=== PATIENT | male | born 1955 | race Hispanic/Latino ===

== ENCOUNTER 2023-03-24 12:06 | Outpatient (CLI) | payer MEDICARE | END 2023-03-24 12:07 | disposition home or self-care (01) | LOC: LABBT 12:06 | PROVIDERS: ATTEND Thoracic Surgery (Cardiothoracic Vascular Surgery) | DX: Z01.810 Encounter for preprocedural cardiovascular examination (principal); I25.118 Atherosclerotic heart disease of native coronary artery with other forms of angina pectoris | CPT/HCPCS: 71046; 93005; 93010 ==

== ENCOUNTER 2023-03-24 12:30 | Inpatient (IN) | payer MEDICARE ==
[2023-03-24 13:09] LABS: Hemoglobin 11.5 g/dL (13.5-17.5); Mean Corpuscular Hemoglobin 26.7 pg (27.0-33.0); Mean Corpuscular Volume 83.5 fl (81.2-95.1); Mean Platelet Volume 9.5 fl (7.4-10.4); Platelet Count 375 10x3/uL (150-450); RBC Distribution Width 15.3 % (11.5-14.5); White Blood Cell (WBC) Count 6.7 10x3/uL (3.5-10.5)
[2023-03-24 13:50] LABS: Anion Gap 18 mmol/L (10-20); BUN (Urea Nitrogen) 18 mg/dL (8.4-25.7); Calc. Creatinine Clearance 0 mL/min (70-130); Calcium 8.9 mg/dL (7.8-10.44); Carbon Dioxide 20 mmol/L (23-31); Chloride 105 mmol/L (98-107); Estimated GFR 57; Potassium 4.5 mmol/L (3.5-5.1); Sodium 138 mmol/L (136-145)
[2023-03-24 14:08] LABS: Glucose 53 mg/dL (80-115)
[2023-03-25] MEDS ORDERED: Ondansetron ODT 4 MG TAB ONE (07:07)
[2023-03-25] MEDS ORDERED: CEFAZOLIN 2 GM VIAL ONE (07:09)
[2023-03-25] MEDS ORDERED: Sodium Chloride 0.9% 100 ML ONE (07:09)
[2023-03-25] MEDS ORDERED: Vancomycin 1 GM VIAL ONE ×2 (07:13→07:48)
[2023-03-25] MEDS ORDERED: Heparin 10,000 UNITS/1 ML VIAL 30,000 UNITS in Sodium Chloride 0.9% 1,000 ML FS SCH (07:15)
[2023-03-25] MEDS ORDERED: Norepinephrine 4 MG/4 ML VIAL ONE (07:48)
[2023-03-25] MEDS ORDERED: Esmolol 100 MG/10 ML VIAL ONE (07:48)
[2023-03-25] MEDS ORDERED: Sodium Bicarb 50 MEQ/50 ML VIAL ONE (07:48)
[2023-03-25] MEDS ORDERED: Potassium Chloride 60 MEQ/30 ML VIAL ONE (07:48)
[2023-03-25] MEDS ORDERED: Lidocaine 1% PF 5 ML VIAL ONE (07:48)
[2023-03-25] MEDS ORDERED: PROPOFOL 200 MG/20 ML VIAL ONE (07:48)
[2023-03-25] MEDS ORDERED: Heparin 30,000 units/30 ml VIAL ONE (07:48)
[2023-03-25] MEDS ORDERED: Lidocaine 2% PF 100 mg/5 ml Syringe ONE (07:48)
[2023-03-25] MEDS ORDERED: Calcium Chloride 1 GM/10 ML Abboject SYRINGE ONE (07:48)
[2023-03-25] MEDS ORDERED: Protamine Sulfate 250 MG/25 ML VIAL ONE (07:48)
[2023-03-25] MEDS ORDERED: Ondansetron PF 4 MG/2 ML Vial ONE (07:48)
[2023-03-25] MEDS ORDERED: Dexamethasone 20 MG/5 ML VIAL ONE (07:48)
[2023-03-25] MEDS ORDERED: Aminocaproic Acid 5 GM/20 ML VIAL ONE (07:48)
[2023-03-25] MEDS ORDERED: Mannitol 12.5 GM/50 ML ONE (07:48)
[2023-03-25] MEDS ORDERED: Cardioplegic Soln 1,000 ML BAG ONE (07:48)
[2023-03-25] MEDS ORDERED: Glycopyrrolate 0.2 MG/ML 5 ML SYRINGE ONE (07:48)
[2023-03-25] MEDS ORDERED: Papaverine 60 MG/2 ML VIAL ONE (07:48)
[2023-03-25] MEDS ORDERED: Heparin 5,000 UNITS/ML VIAL ONE (07:48)
[2023-03-25] MEDS ORDERED: NEOSTIGMINE 3 MG/3 ML SYR 3 MG/3 ML SYRINGE ONE (07:48)
[2023-03-25] MEDS ORDERED: Thrombin 5000 UNITS/5 ML VIAL ONE (07:48)
[2023-03-25] MEDS ORDERED: Magnesium 5 GM/10 ML VIAL ONE (07:48)
[2023-03-25] MEDS ORDERED: Vecuronium 10 MG VIAL ONE (07:48)
[2023-03-25] MEDS ORDERED: Nitroglycerin 50 MG/250 ML BOT ONE (07:48)
[2023-03-25] MEDS ORDERED: Ipratropium/Albuterol 3 ML NEB NEB PRN (11:01)
[2023-03-25] MEDS ORDERED: Acetaminophen 325 MG TAB PO PRN (11:01)
[2023-03-25] MEDS ORDERED: Nitroglycerin 50 MG/250 ML BOT 250 ML IVPB PRN (11:01)
[2023-03-25] MEDS ORDERED: fentaNYL 50 mcg/mL 1 mL Vial SLOW IVP PRN (11:01)
[2023-03-25] MEDS ORDERED: NOREPINEPHRINE 8 MG/250 ML-D5W 250 ML IVPB PRN (11:01)
[2023-03-25] MEDS ORDERED: Post-Op Insulin Drip Protocol IVPB PRN (11:01)
[2023-03-25] MEDS ORDERED: Hetastarch 6% 500 ML 500 ML IVPB PRN (11:01)
[2023-03-25] MEDS ORDERED: Potassium Chloride 20 MEQ/100 ML PREMIX BAG IVPB PRN (11:01)
[2023-03-25] MEDS ORDERED: Promethazine HCl 25 MG/ML VIAL IM PRN (11:01)
[2023-03-25] MEDS ORDERED: Bisacodyl 10 MG SUPP PR PRN (11:01)
[2023-03-25] MEDS ORDERED: traMADol HCl 50 MG TAB PO PRN (11:01)
[2023-03-25] MEDS ORDERED: Morphine 2 MG/ML VIAL SLOW IVP PRN (11:01)
[2023-03-25] MEDS ORDERED: hydrALAZINE 20 MG/ML VIAL SLOW IVP PRN (11:01)
[2023-03-25] MEDS ORDERED: Mag-Al 1200 mg/1200 mg/30 ML UDCUP PO PRN (11:01)
[2023-03-25] MEDS ORDERED: Potassium Chloride 20 MEQ in Premix Bag 1 BAG IVPB PRN (11:09)
[2023-03-25] MEDS ORDERED: Insulin Regular 300 UNITS/3 ML VIAL SC PRN (11:30)
[2023-03-25] MEDS ORDERED: Dextrose 5% in Water 1,000 ML IV PRN (11:30)
[2023-03-25] MEDS ORDERED: Glucagon 1 MG/ML KIT SC PRN (11:30)
[2023-03-25] MEDS ORDERED: HUMULIN R 100 UNITS in Sodium Chloride 0.9% 100 ML IVPB SCH (11:30)
[2023-03-25] MEDS ORDERED: Dextrose 50% Abboject 50 ML SYRINGE SLOW IVP PRN (11:30)
[2023-03-25] MEDS: D5 1/2 NS w/20 mEq KCL 1,000 ML IV SCH (11:45)
[2023-03-25 11:50] LABS: #Basophils 0.1 thou/uL (0.0-0.2); #Eosinphils 0.2 thou/uL (0.0-0.7); #Monocytes 0.4 thou/uL (0.11-0.59); #Neutrophils 14.5 thou/uL (1.40-6.50); %Basophils 0.5 % (0.0-1.0); %Eosinophils 1.3 % (0.0-10.0); %Lymphocytes 4.5 % (21.0-51.0); %Monocytes 2.7 % (0.0-10.0); %Neutrophils 88.6 % (42.0-75.0); Hemoglobin 9.4 g/dL (14.0-18.0); Mean Corpuscular HGB CONC 31.9 g/dL (32.0-36.0); Mean Corpuscular Hemoglobin 26.9 pg (27.0-31.0); Mean Corpuscular Volume 84.5 fl (78.0-98.0); Mean Platelet Volume 9.9 fL (7.4-10.4); Platelet Count 228 10x3/uL (130-400); RBC Distribution Width 15.3 % (11.5-14.5); Red Blood Cell (RBC) Count 3.49 mill/uL (4.70-6.10); White Blood Cell (WBC) Count 16.4 10x3/uL (4.8-10.8)
[2023-03-25 12:06] LABS: INR-International Normal Ratio 1.4; Prothrombin Time 18.1 sec (12.0-14.7)
[2023-03-25 12:14] LABS: Anion Gap 11 mmol/L (10-20); BUN (Urea Nitrogen) 20 mg/dL (8.4-25.7); Calc. Creatinine Clearance 54 mL/min (70-130); Calcium 8.2 mg/dL (7.8-10.44); Carbon Dioxide 22 mmol/L (23-31); Chloride 108 mmol/L (98-107); Estimated GFR 57; Glucose 250 mg/dL (80-115); Potassium 4.1 mmol/L (3.5-5.1); Sodium 137 mmol/L (136-145)
[2023-03-25] MEDS: fentaNYL 50 mcg/mL 1 mL Vial SLOW IVP PRN ×3 (14:30→21:04)
[2023-03-25] MEDS: CEFAZOLIN 2 GM in Sodium Chloride 0.9% 100 ML IVPB SCH ×2 (14:30→22:07)
[2023-03-25] MEDS: Ondansetron PF 4 MG/2 ML Vial IVP PRN (14:47)
[2023-03-25 17:06] LABS: Hemoglobin 8.9 g/dL (14.0-18.0)
[2023-03-25 17:24] LABS: Potassium 4.1 mmol/L (3.5-5.1)
[2023-03-25] MEDS ORDERED: Atorvastatin Calcium 40 MG TAB PO SCH (21:00)
[2023-03-25] MEDS: Famotidine/PF 20 mg/2ml Vial SLOW IVP SCH (21:04)
[2023-03-25] MEDS: traMADol HCl 50 MG TAB PO PRN (23:58)
[2023-03-26] MEDS: fentaNYL 50 mcg/mL 1 mL Vial SLOW IVP PRN ×4 (00:59→22:20)
[2023-03-26 05:09] LABS: #Monocytes 1.1 thou/uL (0.11-0.59); #Neutrophils 10.7 thou/uL (1.40-6.50); %Basophils 0.2 % (0.0-1.0); %Lymphocytes 6.6 % (21.0-51.0); %Monocytes 8.3 % (0.0-10.0); %Neutrophils 84.6 % (42.0-75.0); Hemoglobin 8.7 g/dL (14.0-18.0); Mean Corpuscular Hemoglobin 26.8 pg (27.0-31.0); Mean Corpuscular Volume 83.7 fl (78.0-98.0); Mean Platelet Volume 9.7 fL (7.4-10.4); Platelet Count 254 10x3/uL (130-400); RBC Distribution Width 15.5 % (11.5-14.5); Red Blood Cell (RBC) Count 3.25 mill/uL (4.70-6.10); White Blood Cell (WBC) Count 12.7 10x3/uL (4.8-10.8)
[2023-03-26 05:43] LABS: Anion Gap 10 mmol/L (10-20); BUN (Urea Nitrogen) 20 mg/dL (8.4-25.7); Calc. Creatinine Clearance 68 mL/min (70-130); Calcium 8.2 mg/dL (7.8-10.44); Carbon Dioxide 22 mmol/L (23-31); Cardiac Risk 2.5 (Less than 4.5); Chloride 108 mmol/L (98-107); Cholesterol 91 mg/dl (< 200 Desired); Estimated GFR 69; Glucose 114 mg/dL (80-115); HDL Cholesterol 37 mg/dL (>60 Neg Risk); LDL Cholesterol, Calculated 42 mg/dL; Potassium 4.3 mmol/L (3.5-5.1); Sodium 136 mmol/L (136-145); Triglycerides 60 mg/dL (Less than 150)
[2023-03-26] MEDS: CEFAZOLIN 2 GM in Sodium Chloride 0.9% 100 ML IVPB SCH (06:21)
[2023-03-26] MEDS: Ondansetron PF 4 MG/2 ML Vial IVP PRN (07:22)
[2023-03-26] MEDS: Famotidine/PF 20 mg/2ml Vial SLOW IVP SCH (08:46)
[2023-03-26] MEDS ORDERED: Aspirin 325 MG TAB PO SCH (09:00)
[2023-03-26] MEDS: D5 1/2 NS w/20 mEq KCL 1,000 ML IV SCH (10:18)
[2023-03-26] MEDS ORDERED: Insulin Glargine 30 UNITS/0.3 ML VIAL SC PRN (11:16)
[2023-03-26] MEDS ORDERED: Artificial Tear Sol 15 ML BOT EA EYE PRN (15:30)
[2023-03-26] MEDS ORDERED: Nitroglycerin 0.4 MG TAB (25 Tab Bottle) SL PRN (15:30)
[2023-03-26 15:32] VITALS: BMI 29.7
[2023-03-26] MEDS: Insulin Regular 300 UNITS/3 ML VIAL SC PRN (17:05)
[2023-03-26] MEDS: Atorvastatin Calcium 10 MG TAB PO SCH (20:40)
[2023-03-26] MEDS: traMADol HCl 50 MG TAB PO PRN (20:41)
[2023-03-26] MEDS: Insulin Glargine 30 UNITS/0.3 ML VIAL SC SCH (20:45)
[2023-03-27] MEDS: fentaNYL 50 mcg/mL 1 mL Vial SLOW IVP PRN ×2 (04:39→10:37)
[2023-03-27 05:41] LABS: #Monocytes 1.3 thou/uL (0.11-0.59); #Neutrophils 10.6 thou/uL (1.40-6.50); %Basophils 0.3 % (0.0-1.0); %Eosinophils 0.2 % (0.0-10.0); %Lymphocytes 7.5 % (21.0-51.0); %Monocytes 9.8 % (0.0-10.0); %Neutrophils 81.4 % (42.0-75.0); Mean Corpuscular HGB CONC 31.8 g/dL (32.0-36.0); Mean Corpuscular Hemoglobin 27.3 pg (27.0-31.0); Mean Corpuscular Volume 85.8 fl (78.0-98.0); Mean Platelet Volume 9.6 fL (7.4-10.4); Platelet Count 279 10x3/uL (130-400); RBC Distribution Width 15.6 % (11.5-14.5)
[2023-03-27] MEDS: Insulin Regular 300 UNITS/3 ML VIAL SC PRN (06:06)
[2023-03-27 06:07] LABS: Anion Gap 10 mmol/L (10-20); BUN (Urea Nitrogen) 22 mg/dL (8.4-25.7); Calc. Creatinine Clearance 65 mL/min (70-130); Calcium 8.6 mg/dL (7.8-10.44); Carbon Dioxide 24 mmol/L (23-31); Chloride 105 mmol/L (98-107); Estimated GFR 66; Glucose 178 mg/dL (80-115); Sodium 134 mmol/L (136-145)
[2023-03-27] MEDS ORDERED: Aspirin 325 MG TAB PO SCH (09:00)
[2023-03-27] MEDS: Aspirin 325 mg Enteric Coated Tablet PO SCH (10:32)
[2023-03-27] MEDS: traMADol HCl 50 MG TAB PO PRN ×3 (13:41→21:47)
[2023-03-27] MEDS: Atorvastatin Calcium 10 MG TAB PO SCH (21:46)
[2023-03-27] MEDS: Lisinopril 5 MG TAB PO SCH (21:48)
[2023-03-27] MEDS: Metoprolol Tartrate 25 MG TAB PO SCH (21:48)
[2023-03-27] MEDS: Amitriptyline HCl 10 MG TAB PO SCH (21:48)
[2023-03-27] MEDS: Insulin Glargine 30 UNITS/0.3 ML VIAL SC SCH (21:49)
[2023-03-28] MEDS: Bisacodyl 5 MG TAB PO PRN ×2 (05:01→20:49)
[2023-03-28] MEDS: traMADol HCl 50 MG TAB PO PRN ×3 (05:02→18:50)
[2023-03-28] MEDS: Insulin Regular 300 UNITS/3 ML VIAL SC PRN ×2 (05:47→18:39)
[2023-03-28] MEDS: Lisinopril 5 MG TAB PO SCH ×2 (09:45→20:49)
[2023-03-28] MEDS: Aspirin 325 mg Enteric Coated Tablet PO SCH (09:46)
[2023-03-28] MEDS: Metoprolol Tartrate 25 MG TAB PO SCH ×2 (09:46→20:49)
[2023-03-28 12:11] LABS: Glucose 142 mg/dL (80-115)
[2023-03-28] MEDS ORDERED: Potassium Chloride 10 MEQ TAB PO SCH (13:15)
[2023-03-28] MEDS ORDERED: Furosemide 40 MG TAB PO SCH (13:15)
[2023-03-28 17:17] LABS: Glucose 171 mg/dL (80-115)
[2023-03-28] MEDS: Guaifenesin DM 100-10/5 ML UDCUP PO PRN (20:47)
[2023-03-28] MEDS: Amitriptyline HCl 10 MG TAB PO SCH (20:49)
[2023-03-28] MEDS: Atorvastatin Calcium 10 MG TAB PO SCH (20:49)
[2023-03-28] MEDS: Insulin Glargine 30 UNITS/0.3 ML VIAL SC SCH (20:50)
[2023-03-28 21:58] LABS: Glucose 182 mg/dL (80-115)
[2023-03-29] MEDS: traMADol HCl 50 MG TAB PO PRN ×2 (00:28→20:03)
[2023-03-29] MEDS ORDERED: Glucagon 1 MG/ML KIT ONE (08:01)
[2023-03-29] MEDS: Aspirin 325 mg Enteric Coated Tablet PO SCH (08:38)
[2023-03-29] MEDS: Potassium Chloride 10 MEQ TAB PO SCH (08:39)
[2023-03-29] MEDS: Lisinopril 5 MG TAB PO SCH ×2 (08:39→20:04)
[2023-03-29] MEDS: Furosemide 40 MG TAB PO SCH (08:39)
[2023-03-29] MEDS: Metoprolol Tartrate 25 MG TAB PO SCH ×2 (08:39→20:04)
[2023-03-29] MEDS: Insulin Regular 300 UNITS/3 ML VIAL SC PRN ×2 (12:34→17:49)
[2023-03-29] MEDS: Guaifenesin DM 100-10/5 ML UDCUP PO PRN (20:02)
[2023-03-29] MEDS: Amitriptyline HCl 10 MG TAB PO SCH (20:02)
[2023-03-29] MEDS: Atorvastatin Calcium 10 MG TAB PO SCH (20:03)
[2023-03-29] MEDS: Bisacodyl 5 MG TAB PO PRN (20:04)
[2023-03-29] MEDS: Insulin Glargine 30 UNITS/0.3 ML VIAL SC SCH (20:32)
[2023-03-30] MEDS: traMADol HCl 50 MG TAB PO PRN (05:29)
[2023-03-30 08:02] LABS: Glucose 119 mg/dL (80-115)
[2023-03-30] MEDS: Aspirin 325 mg Enteric Coated Tablet PO SCH (08:42)
[2023-03-30] MEDS: Furosemide 40 MG TAB PO SCH (08:42)
[2023-03-30] MEDS: Potassium Chloride 10 MEQ TAB PO SCH (08:42)
[2023-03-30] MEDS: Metoprolol Tartrate 25 MG TAB PO SCH (08:43)
[2023-03-30] MEDS: Bisacodyl 5 MG TAB PO PRN (08:43)
[2023-03-30] MEDS: Lisinopril 5 MG TAB PO SCH (08:43)
[2023-03-30 12:11] VITALS: BP 118/63; TEMP 98.3
== END 2023-03-30 12:35 | disposition home or self-care (01) | DRG 236 ==
LOC: SURG A 03-25 06:42 → CCU 03-25 11:12 → 2NO 03-26 18:16
PROVIDERS: ADMIT Thoracic Surgery (Cardiothoracic Vascular Surgery); ATTEND Thoracic Surgery (Cardiothoracic Vascular Surgery)
PROC: 02100Z9 Bypass Coronary Artery, One Artery from Left Internal Mammary, Open Approach (ICD-10-PCS; principal; 2023-03-25)
PROC: 021109W Bypass Coronary Artery, Two Arteries from Aorta with Autologous Venous Tissue, Open Approach (ICD-10-PCS; 2023-03-25)
PROC: 06BP4ZZ Excision of Right Saphenous Vein, Percutaneous Endoscopic Approach (ICD-10-PCS; 2023-03-25)
PROC: 5A1221Z Performance of Cardiac Output, Continuous (ICD-10-PCS; 2023-03-25)
PROC: 02L70CK Occlusion of Left Atrial Appendage with Extraluminal Device, Open Approach (ICD-10-PCS; 2023-03-25)
DX: I25.118 Atherosclerotic heart disease of native coronary artery with other forms of angina pectoris (principal); E11.9 Type 2 diabetes mellitus without complications; I10 Essential (primary) hypertension; K21.9 Gastro-esophageal reflux disease without esophagitis; N52.9 Male erectile dysfunction, unspecified; E78.2 Mixed hyperlipidemia; M81.0 Age-related osteoporosis without current pathological fracture; Z86.73 Personal history of transient ischemic attack (TIA), and cerebral infarction without residual deficits; Z82.49 Family history of ischemic heart disease and other diseases of the circulatory system; Z79.82 Long term (current) use of aspirin; Z79.4 Long term (current) use of insulin; Z79.84 Long term (current) use of oral hypoglycemic drugs; Z79.899 Other long term (current) drug therapy; Z83.3 Family history of diabetes mellitus; Z87.891 Personal history of nicotine dependence
CPT/HCPCS: 36415; 36416; 36430; 71045; 80048; 80061; 82805; 82947; 85025; 85027; 85610; 85730; 86850; 86900; 86901; 93005; 93010; 93798; 97139; C1751; J1100; J1611; J1642; J1644; J1815; J2001; J2150; J2405; J2440; J2704; J2720; J3010; J3370; J3475; J3480; J3490; P9045; Q0162; S0017; S0028

== ENCOUNTER 2025-06-20 19:29 | Observation (INO) | payer MEDICARE ==
[2025-06-20 20:11] LABS: #Basophils 0.07 10x3/uL (0.0-0.2); #Eosinophils 0.03 10x3/uL (0.0-0.7); #Monocytes 1.04 10x3/uL (0.11-0.59); #Neutrophils 16.57 10x3/uL (1.40-6.50); %Basophils 0.4 % (0.0-1.0); %Eosinophils 0.2 % (0.0-10.0); %Lymphocytes 3.1 % (21.0-51.0); %Monocytes 5.6 % (0.0-10.0); %Neutrophils 89.9 % (42.0-75.0); Hematocrit 37.5 % (42.0-52.0); Hemoglobin 11.6 g/dL (14.0-18.0); Mean Corpuscular Hemoglobin 25.9 pg (27.0-31.0); Mean Corpuscular Volume 83.7 fL (78.0-98.0); Platelet Count 262 10x3/uL (130-400); Red Blood Cell (RBC) Count 4.48 mill/uL (4.70-6.10); White Blood Cell (WBC) Count 18.43 10x3/uL (4.8-10.8)
[2025-06-20 20:25] LABS: ALT (SGPT) 12 U/L (Less than 45); AST (SGOT) 19 U/L (11-34); Albumin 3.5 g/dL (3.1-4.5); Alkaline Phosphatase 75 U/L (40-110); Anion Gap 13 mmol/L (10-20); BUN (Urea Nitrogen) 16 mg/dL (8.4-25.7); Bilirubin, Total 0.5 mg/dL (0.3-1.2); Calc. Creatinine Clearance 0 mL/min (70-130); Calcium 8.4 mg/dL (7.8-10.44); Carbon Dioxide 20 mmol/L (23-31); Chloride 105 mmol/L (98-107); Globulin 3.3 g/dL (2.4-3.5); Glucose 220 mg/dL (80-115); Potassium 3.9 mmol/L (3.5-5.1); Sodium 134 mmol/L (136-145)
[2025-06-20 21:01] LABS: CAUTI Indications for Culture Alt mental st,lethar; Glucose, Urine (Dipstick) 500 mg/dL (Negative); Leukocyte 75 Leu/uL (Negative); Protein, Urine (Dipstick) Negative (Neg-Trace); RBC/HPF 0-3 HPF (0-3); Specific Gravity, Urine 1.010 (1.002-1.036)
[2025-06-20 21:02] LABS: Bacteria/HPF 1+ HPF (None Seen)
[2025-06-20 21:03] LABS: Urine Culture Reflex No No
[2025-06-20] MEDS ORDERED: cefTRIAXone (ROCEPHIN) 1 GM VIAL ONE (23:17)
[2025-06-20] MEDS ORDERED: Aspirin Chewable 81 MG TAB ONE (23:17)
[2025-06-21] MEDS ORDERED: Glucagon 1 MG/ML KIT IM PRN (01:15)
[2025-06-21] MEDS ORDERED: Dextrose 50% Abboject 50 ML SYRINGE SLOW IVP PRN (01:15)
[2025-06-21] MEDS ORDERED: Acetaminophen 325 MG TAB PO PRN (01:15)
[2025-06-21] MEDS ORDERED: Ondansetron PF 4 MG/2 ML Vial IVP PRN (01:15)
[2025-06-21 01:48] VITALS: BMI 27.1
[2025-06-21 05:13] LABS: #Basophils 0.08 10x3/uL (0.0-0.2); #Eosinophils 0.05 10x3/uL (0.0-0.7); #Monocytes 0.96 10x3/uL (0.11-0.59); #Neutrophils 13.86 10x3/uL (1.40-6.50); %Basophils 0.5 % (0.0-1.0); %Eosinophils 0.3 % (0.0-10.0); %Lymphocytes 11.8 % (21.0-51.0); %Monocytes 5.6 % (0.0-10.0); %Neutrophils 81.5 % (42.0-75.0); Hematocrit 36.7 % (42.0-52.0); Hemoglobin 11.7 g/dL (14.0-18.0); Mean Corpuscular Hemoglobin 26.6 pg (27.0-31.0); Mean Corpuscular Volume 83.4 fL (78.0-98.0); Platelet Count 280 10x3/uL (130-400); Red Blood Cell (RBC) Count 4.40 mill/uL (4.70-6.10); White Blood Cell (WBC) Count 17.00 10x3/uL (4.8-10.8)
[2025-06-21 05:22] LABS: Anion Gap 14 mmol/L (10-20); BUN (Urea Nitrogen) 15 mg/dL (8.4-25.7); Calc. Creatinine Clearance 64 mL/min (70-130); Calcium 8.6 mg/dL (7.8-10.44); Carbon Dioxide 22 mmol/L (23-31); Cardiac Risk 2.5 (Less than 4.5); Chloride 106 mmol/L (98-107); Cholesterol 147 mg/dl (< 200 Desired); Glucose 225 mg/dL (80-115); HDL Cholesterol 59 mg/dL (>60 Neg Risk); LDL Cholesterol, Calculated 73 mg/dL; Potassium 3.8 mmol/L (3.5-5.1); Sodium 138 mmol/L (136-145); Triglycerides 77 mg/dL (Less than 150)
[2025-06-21] MEDS: Enoxaparin 40 MG (0.4 mL) SYRINGE SC SCH (08:12)
[2025-06-21] MEDS ORDERED: FLU (Fluad Triv) 25-26 (65UP)PF 45 MCG/0.5 ML Syringe IM ONE (09:00)
[2025-06-21] MEDS ORDERED: PNEUMOC 20-VAL CONJ-DIP CRM/PF 0.5 ML SYRINGE IM ONE (09:00)
[2025-06-21 12:39] VITALS: BP 150/70; TEMP 98.2
== END 2025-06-21 13:10 | disposition home or self-care (01) ==
LOC: ERS 19:29 → 2SE 23:23
PROVIDERS: ADMIT Internal Medicine; ATTEND Internal Medicine
DX: R11.2 Nausea with vomiting, unspecified (principal); R19.7 Diarrhea, unspecified; R33.9 Retention of urine, unspecified; I10 Essential (primary) hypertension; E11.9 Type 2 diabetes mellitus without complications; W18.30XA Fall on same level, unspecified, initial encounter; Y93.E8 Activity, other personal hygiene; Y92.002 Bathroom of unspecified non-institutional (private) residence as the place of occurrence of the external cause; Z86.73 Personal history of transient ischemic attack (TIA), and cerebral infarction without residual deficits; Z79.84 Long term (current) use of oral hypoglycemic drugs; Z79.82 Long term (current) use of aspirin; Z79.899 Other long term (current) drug therapy
CPT/HCPCS: 51701; 70450; 70553; 71045; 72125; 76376; 80048; 80053; 80061; 81001; 82550; 82962; 83036; 83605; 83880; 84484; 85025 ×2; 93005; 94760; 96365; 99285; J0696; J1650; J1815; J7030; 36416; 96372; G0378